=== PATIENT | female | born 1965 | race Two or more races ===

== ENCOUNTER 2025-03-15 12:20 | Outpatient (CLI) | payer OTHER | END 2025-03-15 12:27 | disposition home or self-care (01) | LOC: MAMO-SONO 12:20 | PROVIDERS: ATTEND Obstetrics & Gynecology | DX: N60.22 Fibroadenosis of left breast (principal); N60.21 Fibroadenosis of right breast; Z12.31 Encounter for screening mammogram for malignant neoplasm of breast; E04.1 Nontoxic single thyroid nodule; D25.1 Intramural leiomyoma of uterus ==

== ENCOUNTER 2025-04-05 09:18 | Outpatient (CLI) | payer OTHER ==
[2025-04-05 10:09] LABS: BASO % 1.3 % (0.1-1.2); EOS # 0.18 (0.04-0.54); EOS % 3.8 % (0.7-7.0); LYMPH # 1.39 (1.18-3.74); LYMPH % 29.5 % (19.3-53.1); MEAN PLATELET VOLUME 10.50 fl (9.4-12.4); MONO # 0.42 (0.24-0.82); MONO % 8.9 % (4.7-12.5); NEUT # 2.65 (1.56-6.13); NEUT % 56.3 % (34.0-71.1); RED CELL DISTRIBUTION WIDTH 12.7 % (11.6-14.4)
[2025-04-05 10:10] LABS: URINE APPEARANCE Clear; URINE BILIRRUBIN Negative (NEGATIVE); URINE BLOOD Negative; URINE COLOR Dark Yellow; URINE GLUCOSE Negative (NEGATIVE); URINE KETONE Trace (NEGATIVE); URINE LEUKOCYTE Negative; URINE NITRATE Negative; URINE PROTEIN Negative (NEGATIVE); URINE UROBILINOGEN 0.2 E.U./dl
[2025-04-05 10:14] LABS: URINE BACTERIA 261.5 uL (0.0-1933); URINE EPITHELIAL CELLS 17.2 uL (0.0-38.8); URINE RBC 5.2 uL (0.0-20.8); URINE WBC 10.7 uL (0.0-23.2)
[2025-04-05 10:20] LABS: URINE CAST 0.73 uL (0.0-1.40)
[2025-04-05 11:29] LABS: ALT/SGPT 27.0 U/L (12-78); AST/SGOT 20.0 U/L (15-37); BILIRUBIN TOTAL 0.88 mg/dL (0.3-1.2); BUN CREA RATIO 30.0 (7.0-25.0); CHOL HDL RATIO 3.3 (0-5.0); CREATININE SERUM 0.56 mg/dL (0.55-1.02); GFR 111.58; GLOBULINA 3.6 G/DL (2.4-3.5); GLUCOSE FASTING 93.0 mg/dL (65-100); HDL 72.0 mg/dl (40-60); LDL 153.0 mg/dl (0-130); OSMOLALITY SERUM 281.0 MOSM/KG (275-295); PHOSPHOKINASE CREATININE 115.0 U/L (26-192); T4 FREE 1.04 NG/ML (0.76-1.46); TSH 1.26 uIU/mL (0.358-3.74); VLDL 14.0 (0-39)
[2025-04-07 09:07] LABS: DHEA-SULFATE 89.9 ug/dL (29.4-220.5)
[2025-04-07 11:11] LABS: ANTI THYROID PEROXIDASE < 9 IU/mL (0-34); INSULIN LEVELS 12.0 uIU/mL (2.6-24.9)
== END 2025-04-05 09:23 | disposition home or self-care (01) ==
LOC: LAB 09:18
PROVIDERS: ATTEND Obstetrics & Gynecology
DX: R73.01 Impaired fasting glucose (principal); E78.00 Pure hypercholesterolemia, unspecified; D50.8 Other iron deficiency anemias; E03.8 Other specified hypothyroidism; E55.9 Vitamin D deficiency, unspecified; R30.0 Dysuria; E16.1 Other hypoglycemia; R79.89 Other specified abnormal findings of blood chemistry; R79.0 Abnormal level of blood mineral; R00.2 Palpitations; I10 Essential (primary) hypertension; E78.5 Hyperlipidemia, unspecified; Z12.5 Encounter for screening for malignant neoplasm of prostate